=== PATIENT | female | born 1990 | race Caucasian/White ===

== ENCOUNTER 2017-03-01 12:38 | Emergency (ER) | payer SELFPAY ==
[~2017-03-01] VITALS: Ht 162.6 cm; Wt 57.2 kg
[2017-03-01 12:39] VITALS: Ht 162.6 cm; Wt 57.2 kg
--- NOTE | 2017-03-01 13:32 | ERD ---
ER Documentation Chief Complaint Chief Complaint head lac s/p missed last step and fell, no ko HPI Otherwise healthy 26-year-old female presenting one hour status post mechanical fall downstairs with laceration to the side of head. Denies loss of consciousness, vomiting, headache, MS, or change of behavior. No recent fever, chills. Has not taken any medications. No medical conditions. Patient has no other complaints and describes no other associated manifestations. Nursing notes have been reviewed and are consistent with history given. ROS All systems reviewed and are negative except as per history of present illness. Allergies Allergies: Coded Allergies: No Known Allergy (Unverified , 03/01/17) Physical Exam Vitals Vital Signs Date Time Temp Pulse Resp B/P Pulse Ox O2 Delivery O2 Flow Rate FiO2 03/01/17 12:39 98.4 95 18 131/107 98 Physical Exam Const: [] Head: Atraumatic Eyes: Normal Conjunctiva ENT: Normal External Ears, Nose and Mouth. Neck: Full range of motion..~ No meningismus. Resp: Clear to auscultation bilaterally Cardio: Regular rate and rhythm, no murmurs Abd: Soft, non tender, non distended. Normal bowel sounds Skin: No petechiae or rashes Back: No midline or flank tenderness Ext: No cyanosis, or edema Neur: Awake and alert Psych: Normal Mood and Affect Results 24 hrs Current Medications Medications (Trade) Dose Ordered Sig/Reina Route PRN Reason Start Time Stop Time Status Last Admin Dose Admin Diphtheria/ Tetanus/Acell Pertussis (Adacel) 0.5 ml ONCE ONCE IM* 03/01/17 14:00 03/01/17 14:01 03/01/17 13:37 Procedures/MDM Otherwise healthy 26-year-old female presenting one hour status post mechanical fall downstairs laceration to the side of the head as described in history and physical examination. I have no suspicion for intracranial pathology including hemorrhage. Most likely diagnosis is laceration. Patient has elected to use 2 roya and set of sutures. No lidocaine was used. 2 roya were placed with adequate approximation. Neurovascularly intact. EOMI and PERRLA bilaterally. No indication for antibiotics. Tetanus shot given. Mild pain at post procedure. [place] 5/325 mg given. I have spoke with the patient regarding their condition and future management. They have verbally responded that they understand their status and treatment plan. The patients vitals are stable, and their current condition is appropriate for discharge. The patient will be given discharge instructions with return precautions. Departure Diagnosis: Primary Impression: Laceration Condition: Stable Additional Instructions: You were seen in the emergency department for your laceration which has been closed. Your wound has been cleaned and covered with antibiotic ointment. Please keep this dressing on for 12 hours. After 12 hours take the dressing down and gently clean the wound with ONLY soap and water. If you were given antibiotics, complete the course of treatment as prescribed. Look for signs of infection such as increasing redness, swelling, pain or drainage of pus (yellow/ green fluid). If you see signs of infection, please return to the emergency department immediately. If there are no signs of infection, cover your wound with antibiotic ointment and reapply a dressing. You will form a scar. To keep from scarring too dark, keep your wound covered and out of the sun for the next 6-12 months. Consider using OTC anti-scar creams such as Mederma. Return to the ED for a wound check in 2 days and again for suture removal in 5 days. RAJAN GROVES PA-C Mar 01, 2017 13:32
[2017-03-01] MEDS ORDERED: DIPHTH/TET/ACEL PERTUSS (ADULT) 0.5 ML VIAL IM* ONE (14:00)
[2017-03-01] MEDS ORDERED: HYDROCODONE/APAP (5/325) TAB PO ONE (14:00)
== END 2017-03-01 14:17 | disposition home or self-care (01) ==
LOC: FTE 12:38
DX: S01.91XA Laceration without foreign body of unspecified part of head, initial encounter (principal); W10.9XXA Fall (on) (from) unspecified stairs and steps, initial encounter; Y92.9 Unspecified place or not applicable; Z23 Encounter for immunization
CPT/HCPCS: 90471; 90715

== ENCOUNTER 2017-03-10 13:17 | Emergency (ER) | payer SELFPAY ==
[~2017-03-10] VITALS: Ht 157.5 cm; Wt 56.8 kg
[2017-03-10 13:21] VITALS: Ht 157.5 cm; Wt 56.8 kg
--- NOTE | 2017-03-10 13:36 | ERD ---
ER Documentation Chief Complaint Chief Complaint R ORTHODOXY STAPLE REMOVAL PLACED 03/01 AT THIS FACILITY HPI 6-year-old female presents emergency department for removal of roya that was placed on March 01 at this facility from an injury. Patient denies any fevers or other complications ROS All systems reviewed and are negative except as per history of present illness. Allergies Allergies: Coded Allergies: No Known Allergy (Unverified , 03/01/17) PMhx/Soc Hx Alcohol Use: No Hx Substance Use: No Hx Tobacco Use: No Physical Exam Vitals Vital Signs Date Time Temp Pulse Resp B/P Pulse Ox O2 Delivery O2 Flow Rate FiO2 03/10/17 13:21 98.6 91 16 113/91 96 Physical Exam Const: [] Head: Atraumatic Eyes: Normal Conjunctiva ENT: Normal External Ears, Nose and Mouth. Neck: Full range of motion..~ No meningismus. Resp: Clear to auscultation bilaterally Cardio: Regular rate and rhythm, no murmurs Abd: Soft, non tender, non distended. Normal bowel sounds Skin: 2 roya intact right latter day Back: No midline or flank tenderness Ext: No cyanosis, or edema Neur: Awake and alert Psych: Normal Mood and Affect Procedures/MDM This is a 26-year-old female presenting to the emergency department for staple removal from an injury that occurred on March 01. There was no evidence of dehiscence, infection. Patient continues to have no neuro deficits. In the ED 2 roya are removed without any complications. Patient stable to be discharged home Departure Diagnosis: Primary Impression: Encounter for removal of sutures Condition: Stable Patient Instructions: Staple Removal, No Complication Referrals: NO PRIMARY,CARE PHYSICIAN (PCP) NICOLA GRADY PA-C Mar 10, 2017 13:36
== END 2017-03-10 14:02 | disposition home or self-care (01) ==
LOC: FTE 13:17
DX: Z48.02 Encounter for removal of sutures (principal)
CPT/HCPCS: 99281